=== PATIENT | female | born 1930 | race Caucasian/White ===

== ENCOUNTER → 2018-07-22 | Outpatient (CLI) | payer MEDICARE, BC ==
--- NOTE | 2018-07-22 14:52 | XR ---
EXAMINATION TYPE: XR Hip Complete RT DATE OF EXAM: 07/22/2018 COMPARISON: None HISTORY: Pain TECHNIQUE: 2 views submitted FINDINGS: There is no evidence of erosive change or acute fracture. Diffuse osteopenia. There is narrowing of t he joint space and hypertrophic spurring. No acute fracture. No dislocation. 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 IMPRESSION: 1. No evidence of acute fracture or dislocation. 2. Arthropathy.
== END ==
LOC: RADXRYALE 14:36
PROVIDERS: ATTEND Physician Assistant Medical
DX: M16.11 Unilateral primary osteoarthritis, right hip (principal)
CPT/HCPCS: 73502